=== PATIENT | male | born 1965 | race American Indian/Alaskan Native ===

== ENCOUNTER 2017-09-23 12:23 | Emergency (ER) | payer MEDICAID, OTHER ==
[~2017-09-23] VITALS: Ht 170.2 cm; Wt 79.5 kg
[~2017-09-23 12:23] MED LIST: BACDS PO; DARU800T PO; EMTR1TAB12 PO; LEVO750T46 PO; METO-292 PO; PANT40SU2 PO; RITO100T PO
[2017-09-23] MEDS ORDERED: LIDOcaine 1.5% w/epinephrine 1:200,000 5ml ampul IJ ONE (13:15)
[2017-09-23] MEDS ORDERED: TETanus/Pertussis (Acell)/Diphther VAC/PF (Tdap-Adult) 0.5ml syringe IM ONE (13:25)
[2017-09-23] MEDS ORDERED: DOXYCYCLINE 100MG CAPSULE PO STA (13:27)
[2017-09-23] MEDS ORDERED: DOXY100C43 PO (13:29)
[2017-09-23 14:19] VITALS: BP 174/109
== END 2017-09-23 14:21 | disposition home or self-care (01) ==
LOC: ER 12:23
DX: S81.011A Laceration without foreign body, right knee, initial encounter (principal); F17.210 Nicotine dependence, cigarettes, uncomplicated; Z88.0 Allergy status to penicillin; Z79.2 Long term (current) use of antibiotics; Z79.899 Other long term (current) drug therapy; W54.0XXA Bitten by dog, initial encounter; Y93.89 Activity, other specified; Y92.89 Other specified places as the place of occurrence of the external cause; Y99.8 Other external cause status
CPT/HCPCS: 12002; 90471; 90715; 99283; A6446; A6449; J3490

== ENCOUNTER 2022-10-30 00:50 | Emergency (ER) | payer OTHER ==
[~2022-10-30] VITALS: Ht 170.2 cm; Wt 79.5 kg
[~2022-10-30 00:50] MED LIST changes: -BACDS PO; -DARU800T PO; -EMTR1TAB12 PO; -LEVO750T46 PO; -METO-292 PO; +NO HOME MEDS; -PANT40SU2 PO; -RITO100T PO
--- NOTE | 2022-10-30 01:16 | NUR ---
IV access attempted x 2 and unsuccessful. Pt stated he is a hard stick and last time IV was in his neck. Charge nurse Karla TOMLINSON notified and asked for assistance to place IV.
--- NOTE | 2022-10-30 01:25 | NUR ---
Dr Purvis aware of inability to obtain IV access. Dr Purvis stated to hold on obtaining IV access. RN verbalized understanding.
--- NOTE | 2022-10-30 01:35 | NUR ---
Dr Purvis at bedside examining pt.
[2022-10-30] MEDS ORDERED: lisinopril 10 MG tablet PO ONE (01:40)
[2022-10-30] MEDS ORDERED: meclizine 12.5mg tablet PO ONE (01:40)
[2022-10-30 01:43] LABS: BASOPHILS % (AUTO) 0.2 % (0-1); EOSINOPHILS % (AUTO) 0.2 % (0-6); HEMATOCRIT 41.4 % (42.0-52.0); HEMOGLOBIN 13.8 g/dl (14.0-17.9); LYMPHOCYTES # (AUTO) 0.9 X10'3 (1.1-4.8); LYMPHOCYTES % (AUTO) 13.5 % (21-51); MEAN CORPUSCULAR HEMOGLOBIN 31.2 PG (27.0-31.0); MEAN CORPUSCULAR HGB CONC 33.2 g/dL (33.0-36.5); MEAN CORPUSCULAR VOLUME 93.9 FL (78-98); MEAN PLATELET VOLUME 9.3 FL (7.4-10.4); MONOCYTES # (AUTO) 0.4 X10'3 (0-0.9); MONOCYTES % (AUTO) 6.4 % (2-12); NEUTROPHILS # (AUTO) 5.1 X10'3 (1.8-7.7); NEUTROPHILS % (AUTO) 79.7 % (42-75); PLATELET COUNT 167 X10'3 (140-440); RED BLOOD COUNT 4.41 X10'6 (4.70-6.10); RED CELL DISTRIBUTION WIDTH 14.4 % (11.5-14.5); WHITE BLOOD COUNT 6.3 X10'3 (4.5-11.0)
[2022-10-30 01:51] LABS: APTT 26 SECONDS (22-32); INR 1.1 INR
[2022-10-30 01:53] LABS: ALANINE AMINOTRANSFERASE 86 U/L (12-78); ALBUMIN/GLOBULIN RATIO 0.6 (1.1-1.5); ALKALINE PHOSPHATASE 135 IU/L (46-116); ANION GAP 6 (8-16); ASPARTATE AMINO TRANSFERASE 122 U/L (10-37); BILIRUBIN,TOTAL 0.4 MG/DL (0.1-1.0); BLOOD UREA NITROGEN 16 MG/DL (7-18); BUN/CREATININE RATIO 20.3 (10.0-20.0); CHLORIDE 108 MMOL/L (99-107); CREATININE 0.79 MG/DL (0.60-1.10); GLUCOSE 128 MG/DL (70-104); POTASSIUM 4.1 MMOL/L (3.5-5.1); SODIUM 146 MMOL/L (135-145); TOTAL CARBON DIOXIDE 32.4 MMOL/L (24-32); TOTAL PROTEIN 8.4 G/DL (6.4-8.2); eCRCL 96 ML/MIN; eGFR > 90 ML/MIN
[2022-10-30 02:02] LABS: PRO BRAIN NATRIURETIC PEPTIDE 188 PG/ML (0-125)
[2022-10-30 02:38] VITALS: TEMP 98.1
[2022-10-30] MEDS ORDERED: MECL-226 PO (02:50)
[2022-10-30] MEDS ORDERED: LISI20TA28 PO (02:53)
[2022-10-30 03:22] VITALS: BP 143/98; PULSE 90; RESP 21; O2SAT 98
[2022-10-30 03:31] LABS: PROTHROMBIN TIME 11.5 SECONDS (9.0-12.0)
== END 2022-10-30 03:25 | disposition home or self-care (01) ==
LOC: ER 00:50
DX: R42 Dizziness and giddiness (principal); I10 Essential (primary) hypertension; E11.9 Type 2 diabetes mellitus without complications; F15.90 Other stimulant use, unspecified, uncomplicated; Z88.0 Allergy status to penicillin; Z79.899 Other long term (current) drug therapy
CPT/HCPCS: 36415; 71045; 80053; 83735; 83880; 84484; 85025; 85610; 85730; 93005; 99285; J8597